=== PATIENT | male | born 1970 | race Caucasian/White ===

== ENCOUNTER → 2017-09-18 13:11 | Outpatient (CLI) | payer OTHER, SELFPAY ==
--- NOTE | 2017-09-18 13:17 | RAD_ITS ---
STUDY: X-RAY - RIGHT FOOT CLINICAL: Male, 46 years old. Pain on top of foot, fourth and fifth metatarsal. TECHNIQUE: view(s) of the foot. COMPARISON: None. FINDINGS: Normal talus, calcaneus, and tarsal bones. Normal visualized subtalar, talonavicular, calcaneocuboid, tarsal and tarsometatarsal articulations. Normal metatarsi. Normal metatarsophalangeal joint of the great toe. Normal interphalangeal joint of the great toe. Normal phalanges of the great toe. Normal second through fifth metatarsophalangeal joints. Normal interphalangeal joints and phalanges of the lesser toes. The soft tissue structures are unremarkable. RAD/Foot min 3 Views IMPRESSION: No acute osseous injury. Electronically Signed: Madison Nunez MD at 13:45 EDT Tel , Service support ,
== END ==
PROVIDERS: Family Provider Family Medicine; PCP Family Medicine; Visit Provider Family Medicine
DX: S92.341A Displaced fracture of fourth metatarsal bone, right foot, initial encounter for closed fracture (principal); S92.351A Displaced fracture of fifth metatarsal bone, right foot, initial encounter for closed fracture; X58.XXXA Exposure to other specified factors, initial encounter
CPT/HCPCS: 73630

== ENCOUNTER → 2022-09-04 | Outpatient (CLI) | payer OTHER, SELFPAY ==
[2022-09-04 12:45] LABS: Absolute Lymphocyte Count 1.76 X10^3/uL (0.83-4.51); Absolute Neutrophil Count 3.6 X10^3/uL (2.0-7.7); Basophil# 0.03 X10^3/uL; Basophil% 0.5 % (0-1); Eosinophil# 0.09 X10^3/uL; Eosinophils% 1.5 % (0-5); Hematocrit 47.3 % (40-54); Hemoglobin 14.9 g/dL (13.0-16.5); Lymphocyte # 1.76 X10^3/ul (0.83-4.51); Lymphocyte % 29.5 % (19-41); Mean Corp Hgb Conc 31.5 g/dL (32-36); Mean Corpuscular Hgb 28.9 pg (27.0-32.0); Mean Corpuscular Volume 91.8 fL (80-94); Mean Platelet Vol. 10.6 fl (6.2-12.0); Monocyte# 0.45 X10^3/uL; Monocyte% 7.6 % (0-10); NRBC Flagged by Analyzer 0 % (0-5); Neutrophil # 3.62 X10^3/uL (2.7-7.7); Neutrophil % 60.7 % (47-70); Platelet Count 244 K/mm3 (150-450); RBC Distribution Width CV 12.3 % (11.6-14.6); RBC Distribution Width SD 41.8 fl (35.1-43.9); Red Blood Count 5.15 M/mm3 (4.6-6.2)
[2022-09-04 14:33] LABS: ALB/GLOB Ratio 0.8 RATIO (0.9-2.4); AST(SGOT) 24 U/L (15-37); Alanine Aminotransfer ALT/SGPT 39 U/L (16-61); Albumin, Serum 3.7 g/dL (3.2-5.0); Alkaline Phosphatase 78 U/L (45-117); Anion Gap 5 (5-15); BUN 24 mg/dL (7-18); BUN/Creat Ratio 16.9 RATIO (10-20); Calcium,Total 9.8 mg/dL (8.5-10.1); Chloride 107 mmol/L (98-107); Cholesterol 222 mg/dL (200); Creatinine, Serum 1.42 mg/dL (0.70-1.30); EST Glomerular Filtration Rate 56 mL/min (>60); Est Glom Filt Rate - Afr Amer 67 mL/min (>60); Globulin 4.4 g/dL (2.2-4.2); Glucose 88 mg/dL (74-106); High Density Lipoprotein 42 mg/dL; Potassium 4.5 mmol/L (3.5-5.1); Protein, Total 8.1 g/dL (6.4-8.2); Sodium Level 138 mmol/L (136-145); Triglycerides 125 mg/dL; Very Low Density Lipoprotein 25 mg/dL (5-40)
== END | disposition home or self-care (01) ==
LOC: BFHLAB 09:01
PROVIDERS: PCP Nurse Practitioner Family; Referring Provider Nurse Practitioner Family; Visit Provider Nurse Practitioner Family
DX: Z00.00 Encounter for general adult medical examination without abnormal findings (principal)
CPT/HCPCS: 36415; 80053; 80061; 85025

== ENCOUNTER → 2022-12-24 | Outpatient (CLI) | payer OTHER, SELFPAY ==
--- NOTE | 2022-12-24 09:23 | RAD_ITS ---
EXAM: XR RIGHT KNEE COMPLETE, 4 OR MORE VIEWS CLINICAL INDICATION: PAIN TECHNIQUE: Four or more views of the right knee. COMPARISON: No relevant prior studies available. FINDINGS: BONES/JOINTS: Unremarkable. No acute fracture. No subluxation. Normal alignment. Preservation of the joint space. No sclerotic or destructive changes observed. SOFT TISSUES: Unremarkable. No soft tissue swelling or gas. No radiopaque foreign body. RAD/Knee 4 or More Views IMPRESSION: Negative right knee x-rays. Electronically Signed: Elia Hunt MD at 7:48 EDT ,
--- NOTE | 2022-12-24 09:30 | RAD_ITS ---
EXAM: XR LEFT KNEE COMPLETE, 4 OR MORE VIEWS CLINICAL INDICATION: PAIN TECHNIQUE: Four or more views of the left knee. COMPARISON: No relevant prior studies available. FINDINGS: BONES/JOINTS: Plate-screw fixation of the proximal tibia is partially visualized. Lateral tibial plateau cortical irregularity likely secondary to chronic posttraumatic change with associated superimposed posttraumatic degenerative change. Patellar enthesophytes. Healing/healed fracture of the proximal fibula is present. No sclerotic or destructive changes observed. SOFT TISSUES: No significant abnormality. No soft tissue swelling or gas. No radiopaque foreign body. RAD/Knee 4 or More Views IMPRESSION: Chronic posttraumatic and degenerative changes. No acute fracture. Electronically Signed: Sai Ramos DO at 22:39 EDT ,
--- NOTE | 2022-12-24 09:35 | RAD_ITS ---
INDICATION: PAIN EXAMINATION/TECHNIQUE: X-RAY - XR Hips Bilateral with Pelvis when performed; 2 Views COMPARISON: No relevant prior comparison study available FINDINGS: PELVIC BONES: No displaced fracture, destructive or sclerotic lesions. Note that overlapping bowel shadows may however obscure fine detail. Sacroiliac joints are unremarkable. No widening of the pubic symphysis. HIPS: Mild degenerative change at the left hip with subchondral sclerosis noted. No displaced fracture seen in this frontal view. SOFT TISSUES: No soft tissue swelling or gas. RAD/Hips B/L min 2 views w/ Pelvis IMPRESSION: No evidence of displaced pelvic or hip fracture. Mild degenerative change at the left hip. Electronically Signed: Dario Fontaine MD at 2:06 EDT ,
--- NOTE | 2022-12-24 09:40 | RAD_ITS ---
INDICATION: Chronic lower back pain, no known injury EXAMINATION/TECHNIQUE: X-RAY - XR Spine Lumbar 2 or 3 Views: AP, lateral and spot views COMPARISON: None. FINDINGS: VERTEBRAE: Preserved vertebral body heights. No fracture or suspicious osseous lesion demonstrated. No spondylolisthesis. Preservation of the normal lumbar lordosis. Lower lumbar spondylosis. Multilevel mild endplate spurring. DISCS: Disc spaces are maintained. INCLUDED ABDOMEN: Included bowel gas pattern is non-obstructive. RAD/Lumbar Spine 2 or 3 Views IMPRESSION: Multilevel mild lumbar spondylosis Electronically Signed: Matt Mccormick MD at 21:04 EDT ,
--- NOTE | 2022-12-24 09:45 | RAD_ITS ---
INDICATION: PAIN -- S EXAMINATION/TECHNIQUE: X-RAY - XR Spine Cervical 2 or 3 Views COMPARISON: No relevant prior comparison study available FINDINGS: VERTEBRAE: Preserved vertebral body height. No fracture. No spondylolisthesis. Preservation of the normal cervical lordosis. No significant facet arthropathy. DISCS: Disc spaces are maintained. Small endplate osteophytes throughout the cervical spine. NECK SOFT TISSUES: No prevertebral soft tissue widening. LUNG APICES: Clear. RAD/Cerv Spine 2 or 3 Views IMPRESSION: No evidence of acute fracture or spondylolisthesis. Mild degenerative changes of the cervical spine throughout. Electronically Signed: Dario Fontaine MD at 2:07 EDT ,
== END | disposition home or self-care (01) ==
LOC: MTRAD 09:22
PROVIDERS: PCP Nurse Practitioner Family; Referring Provider Nurse Practitioner Family; Visit Provider Nurse Practitioner Family
DX: M54.2 Cervicalgia (principal); M25.551 Pain in right hip; M25.552 Pain in left hip; M25.561 Pain in right knee; M25.562 Pain in left knee
CPT/HCPCS: 72040; 72100; 73521; 73564

== ENCOUNTER 2023-01-04 08:00 | Outpatient (RCR) | payer OTHER, SELFPAY ==
--- NOTE | 2022-12-24 09:06 | HP.PTEVAL ---
Patient's Visit Information Visit Information Visit Information: JORDIN RENAE is a 52 year old M referred to Physical Therapy by Dr. Matt Lin, with a diagnosis of Back pain, neck pain, knee pain, hip pain. Date of Evaluation: 12/24/22 Physical Therapist: Danielito Sheridan, BÁRBARAT, OCS, CSCS Visit Plan Frequency: 2-3x /Week Duration: 2-4 Weeks Plan: 2-3x/week x 4-6 weeks for 1. stretching quad and HS, strengthen hips and posture and core with exercises patient can do at home and on bowflex with list and pics. [employer] Consultant regarding activity modification. Pt to monitor diet and activity at home. Subjective Subjective: leg full of metal. both feet hurt if not in shoes all the time. Standing on hard floor makes whole body hurt and lock up. Walking on soft uneven ground is OK. Knees and hips can give hime fits. LBP has been tolerable but worse lately. Hands and lower arms can go numb with driving or running mouse on computer, disappears quickly. Neck can hurt also. Moved railroad ties a week ago and 09/17 in LB and spine. Hard to bend after and get in and out of shower. Been going on for a long time and progressively worsening. has to help him out at times to go to bathroom. Doctor gave prednisone and has been feeling pretty good other than LB. Has lost 40# lately by being careful with eating. Volume has decreased. Enjoys hiking in [place] but has to hold off on that sometimes. Retired. Spends day doing a little bit of everything, sat at a desk for years. Has tried stretches, no strengthening. Sleeping is not great, arms might wake him up at times but does not typically sleep great. Retired this year in june Pain LBP: Pain Intensity (Out of 10): 2 Pain Intensity Range: 0 and 7 Comment: comfortable at rest. Objective Objective: Walks slowly but I without antalgia into PT today(is on prednisone). Chair transfers without a problem or need for UE. Bed transfers show core weakness but no pain. Steps are reciprocal without UE without much pain today. max tightness in HS at -35 90/90 test, max tight in psoas ROM LB mod limited extension with central tightness, flexion and SB are without pain and min deficits. Cervical aROM is without pain and full. UE and LE AROM WFL otherwise. strength: hips 3+ abd and rotations and ext, 4- flexion adn opposite IR. knee strength 4+ ankles 4+/5 reflexes 2/3 patella and achilles, bi and tri. Sensation LE and UE WNL to gross light touch Balance/Special Test Scores Lower Extremity Functional Score: 35 Goals Goal 1:: I appropriate HEP for LE and core strength and flexibility...activity modifcaiton Goal Time Frame: 4-6 Weeks Goal 2:: Pain 0-2/10 at worst and 75% improved in all painful joints. Goal Time Frame: 4-6 Weeks Goal 3:: Shop with without increased pain Goal Time Frame: 4-6 Weeks Rehabilitation Potential Physical Therapy Diagnosis: widespread pain limiting function at home. Rehabilitation Potential: Good Anticipated Interventions Patient/Client Instruction: Educate patient on: Condition and Plan of Care For the Purpose of:: To decrease pain, To increase ROM, To improve muscle performance and motor function, To increase tolerance to activity/condition/position, To improve ability of physical actions for home/community/work/leisure and To improve gait and locomotor functions Therapeutic Exercise to Include: Strength training, Postural training and Flexibilty training For the Purpose of:: To decrease pain, To increase ROM, To improve nutrient delivery to tissue, To increase oxygenation perfusion, To increase tolerance to activity/condition/position, To improve ability of physical actions for home/community/work/leisure and To improve gait and locomotor functions Text: Thank you for the opportunity to evaluate your patient. For Medicare and Medicare HMO plans, please review the plan of care and approve it. It will need to be FAXED BACK to us at [phone] for Medicare purposes. For Medicare only, by signing this I certify the plan of care. Please let me know if there are questions or concerns regarding this plan of care. Physician Signature: Date:
--- NOTE | 2023-01-04 09:44 | HP.PTDCSUM ---
Discharge Summary D/C summary: It has been my pleasure to treat JORDIN RENAE referred by Dr. Matt Lin DO, with the diagnosis of Back pain, neck pain, knee pain, hip pain for a total of 5 visit(s). Discharge Date: 01/04/23 Please see the following information for a summary of their discharge status. Subjective Subjective: 20% better. Still sore, painful but seems to be less intense than usual. High co-pay ($80) is getting to be too much. Pt wants to make today his last session. Pain LBP: Pain Intensity (Out of 10): 2 Overall Improvement % Improvement: 20 Objective Objective/Function: Continued with current home based exercises. Reviewed technique. Patient communicates and demonstrates good understanding. Goals Goal 1:: I appropriate HEP for LE and core strength and flexibility...activity modifcaiton Goal Progress: Goal Met Goal 2:: Pain 0-2/10 at worst and 75% improved in all painful joints. Goal Progress: Progressing Goal 3:: Shop with without increased pain Plan Plan: Discharge to home program per patient request. Pt to call if he has any problems. D/C Information Discharge Comments: Pt to do exercises at home and discontinue PT due to financial concerns and will let doctor know if not successful. d/c sentence: If there are questions or concerns regarding this patient's physical therapy, please feel free to call me at [phone]. Thank you for the referral of this patient. Sincerely, Danielito Sheridan, DPT, OCS, CSCS Balance/Gait/Functional tests Balance/Special Test Scores Lower Extremity Functional Score: 47 Improvement % Improvement: 20
== END 2023-01-04 10:00 | disposition home or self-care (01) ==
LOC: PT 08:00
PROVIDERS: PCP Nurse Practitioner Family; Referring Provider Family Medicine; Visit Provider Family Medicine
DX: M54.2 Cervicalgia (principal); M25.561 Pain in right knee; M25.562 Pain in left knee; M25.551 Pain in right hip; M25.552 Pain in left hip; M54.50 Low back pain, unspecified
CPT/HCPCS: 97110; 97161

== ENCOUNTER → 2023-09-06 | Outpatient (CLI) | payer OTHER, SELFPAY ==
[2023-09-06 12:10] LABS: Absolute Lymphocyte Count 1.61 X10^3/uL (0.83-4.51); Basophil# 0.03 X10^3/uL; Basophil% 0.6 % (0-1); Eosinophil# 0.13 X10^3/uL; Eosinophils% 2.5 % (0-5); Hematocrit 42.5 % (40-54); Hemoglobin 13.6 g/dL (13.0-16.5); Lymphocyte # 1.61 X10^3/ul (0.83-4.51); Lymphocyte % 31.6 % (19-41); Mean Corpuscular Hgb 28.5 pg (27.0-32.0); Mean Corpuscular Volume 89.1 fL (80-94); Mean Platelet Vol. 10.6 fl (6.2-12.0); Monocyte# 0.33 X10^3/uL; Monocyte% 6.5 % (0-10); NRBC Flagged by Analyzer 0 % (0-5); Neutrophil # 2.99 X10^3/uL (2.7-7.7); Neutrophil % 58.6 % (47-70); Platelet Count 243 K/mm3 (150-450); RBC Distribution Width CV 12.5 % (11.6-14.6); RBC Distribution Width SD 41.1 fl (35.1-43.9); Red Blood Count 4.77 M/mm3 (4.6-6.2); White Blood Count 5.1 K/mm3 (4.4-11.0)
[2023-09-06 12:29] LABS: AST(SGOT) 23 U/L (15-37); Alanine Aminotransfer ALT/SGPT 31 U/L (16-61); Albumin, Serum 3.6 g/dL (3.2-5.0); Alkaline Phosphatase 66 U/L (45-117); Anion Gap 8 (5-15); BUN 13 mg/dL (7-18); BUN/Creat Ratio 12.7 RATIO (10-20); Calcium,Total 9.3 mg/dL (8.5-10.1); Chloride 108 mmol/L (98-107); Cholesterol 197 mg/dL (200); Creatinine, Serum 1.02 mg/dL (0.70-1.30); EST Glomerular Filtration Rate 81 mL/min (>60); Est Glom Filt Rate - Afr Amer 98 mL/min (>60); Globulin 3.7 g/dL (2.2-4.2); Glucose 90 mg/dL (74-106); High Density Lipoprotein 47 mg/dL; Potassium 4.1 mmol/L (3.5-5.1); Protein, Total 7.3 g/dL (6.4-8.2); Sodium Level 141 mmol/L (136-145); Triglycerides 66 mg/dL; Very Low Density Lipoprotein 13 mg/dL (5-40)
== END | disposition home or self-care (01) ==
LOC: BFHLAB 09:06
PROVIDERS: PCP Nurse Practitioner Family; Referring Provider Nurse Practitioner Family; Visit Provider Nurse Practitioner Family
DX: Z00.01 Encounter for general adult medical examination with abnormal findings (principal); I10 Essential (primary) hypertension; Z12.5 Encounter for screening for malignant neoplasm of prostate
CPT/HCPCS: 36415; 80053; 80061; 84153; 85025; G0103